=== PATIENT | female | born 1950 | race Caucasian/White ===

== ENCOUNTER 2016-06-01 02:33 | Inpatient (IN) | payer BC ==
[~2016-06-01] VITALS: Ht 160 cm; Wt 86.8 kg
[~2016-06-01 02:33] MED LIST: ADVAIR; ANTIVERT25 MG PO; ATIVAN2 MG PO; AZO95 MG PO; Advair 250/50 Diskus IH; Aspirin E.C. PO; Ativan PO; CARDIZEM LA240 MG PO; CEFTIN500 MG PO; Cardizem CD,Cartia X PO; Ceftin PO; Cipro PO; Colace PO; Combivent IH; Ecotrin PO; HYDROCHLOROTHIA25 MG PO; Habitrol,Nicoderm CQ TD; LEXAPRO20 MG; LEXAPRO20 MG PO; LOPRESSOR50 MG PO; LORAZEPAM2 MG PO; Lopressor PO; METOPROLOL SUCC50 MG PO; Milk Of Magnesia,MOM PO; NICOTINE PATCH1 EAC2 TD; OMEPRAZOLE40 M1 PO; PREDNISONE10 MG PO; PROAIR HFA8.5 GM IH; Percocet 5/325,Endoc PO; TYLENOL REGULA325 MG PO; Tylenol Regular Stre PO; Zithromax PO; predniSONE PO
[2016-06-01 03:13] LABS: HEMATOCRIT 43.1 % (36.0-46.0); MCH 30.6 PG (29.0-34.0); MCHC 33.9 G/DL (30.0-36.0); MCV 90.4 FL (83-99); MEAN PLAT.VOLUME 9.9 uM^3 (9.5-12.4); PLATELET COUNT 334 K/uL (156-360); RBC DIS.WIDTH-SD 45.6 % (39-53); RED BLOOD COUNT 4.77 M/uL (3.80-5.20); WHITE BLOOD COUNT 12.4 K/uL (4.1-10.2)
[2016-06-01 03:19] LABS: POTASSIUM ND MEQ/L (3.7-5.4)
[2016-06-01 03:26] LABS: CHLORIDE 105 mEq/L (99-109); SODIUM 137 mEq/L (136-147)
[2016-06-01 03:28] LABS: GLUCOSE 98 mg/dL (70-99)
[2016-06-01 03:29] LABS: ANION GAP 11 MEQ/L (2-14)
[2016-06-01 03:31] LABS: GFR ESTIMATE (CALCULATED) > 59 mL/min/
[2016-06-01 03:32] LABS: UREA NITROGEN (BUN) 9 mg/dL (9-23)
[2016-06-01 03:33] LABS: TROP-I INTERPRETATION NEGATIVE; TROPONIN-I < 0.01 ng/mL (0.0-0.30)
[2016-06-01 03:52] LABS: INFLUENZA A VIRAL ANTIGEN NEGATIVE; INFLUENZA B VIRAL ANTIGEN NEGATIVE
[2016-06-01 04:28] LABS: POTASSIUM 3.6 mEq/L (3.7-5.4)
[2016-06-01] MEDS ORDERED: ATIVAN2 MG PO (06:19)
[2016-06-01] MEDS ORDERED: ANTIVERT25 MG PO (06:20)
[2016-06-01] MEDS ORDERED: CARTIA XT240 MG PO (06:20)
[2016-06-01] MEDS ORDERED: OMEPRAZOLE40 M1 PO (06:20)
[2016-06-01 13:07] VITALS: BP 105/52
[2016-06-01 17:02] VITALS: BP 163/72
[2016-06-01 20:15] VITALS: BP 134/72
[2016-06-02 00:01] VITALS: BP 103/50
[2016-06-02 03:52] VITALS: BP 130/64
[2016-06-02 06:41] LABS: ANION GAP 10 MEQ/L (2-14); CHLORIDE 104 MEQ/L (99-109); GFR ESTIMATE (CALCULATED) > 59 mL/min/; GLUCOSE 150 mg/dL (70-99); SAMPLE HEMOLYSIS CHECK 0; SAMPLE ICTERIC CHECK 0; SAMPLE LIPEMIA CHECK 0; SODIUM 139 MEQ/L (136-147); UREA NITROGEN (BUN) 10 mg/dL (9-23)
[2016-06-02 07:08] LABS: EOSINOPHIL (%) 0 % (0-5); HEMATOCRIT 42.5 % (36.0-46.0); IMMATURE GRANULOCYTE (%) 0.6 % (0.0-0.7); IMMATURE GRANULOCYTE COUNT 0.1 K/uL; LYMPHOCYTE COUNT 0.7 K/uL (1.0-2.8); MCH 30.9 PG (29.0-34.0); MCHC 33.2 G/DL (30.0-36.0); MCV 93.2 FL (83-99); MEAN PLAT.VOLUME 9.9 uM^3 (9.5-12.4); MONOCYTE COUNT 0.1 K/uL (0-0.8); NEUTROPHIL (%) 93.2 % (45-76); NEUTROPHIL COUNT 12.7 K/uL (1.8-6.4); PLATELET COUNT 314 K/uL (156-360); RBC DIS.WIDTH-SD 47.4 % (39-53); RED BLOOD COUNT 4.56 M/uL (3.80-5.20); WHITE BLOOD COUNT 13.6 K/uL (4.1-10.2)
[2016-06-02 08:12] VITALS: BP 141/72
[2016-06-02] MEDS ORDERED: ADVAIR 500/501 DISK IH (11:07)
[2016-06-02 11:40] VITALS: BP 121/61
[2016-06-02] MEDS ORDERED: PREDNISONE10 MG PO (12:02)
[2016-06-02] MEDS ORDERED: NICOTINE PATCH1 EAC2 TD (12:02)
[2016-06-02] MEDS ORDERED: SPIRIVA RESPIMAT4 GM IH (12:02)
[2016-06-02] MEDS ORDERED: CEFTIN500 MG PO (12:02)
[2016-06-02] MEDS ORDERED: ZITHROMAX500 MG PO (12:02)
== END 2016-06-02 14:44 | disposition home or self-care (01) | DRG 192 ==
LOC: EME → EDBD 02:33 → EDOF 05:45 → 5WEST 07:22
PROVIDERS: Emergency Medicine; Internal Medicine
DX: J44.0 Chronic obstructive pulmonary disease with (acute) lower respiratory infection (principal); J20.9 Acute bronchitis, unspecified; J44.1 Chronic obstructive pulmonary disease with (acute) exacerbation; E87.6 Hypokalemia; I10 Essential (primary) hypertension; F41.9 Anxiety disorder, unspecified; F17.200 Nicotine dependence, unspecified, uncomplicated; K21.9 Gastro-esophageal reflux disease without esophagitis; Z86.000 Personal history of in-situ neoplasm of breast; E66.9 Obesity, unspecified; Z68.33 Body mass index [BMI] 33.0-33.9, adult
CPT/HCPCS: 71020; 80048; 83605; 84484; 84999; 85025; 85027; 87040; 87070; 87205; 87449; 87502; 93005; 94640; 94640 76; 94760; 94799; 99202; 99281; 99285; J0456; J0696; J1644; J1956; J2930; J7030; J7050

== ENCOUNTER 2016-07-22 05:37 | Day surgery (SDC) | payer BC, OTHER ==
[~2016-07-22] VITALS: Ht 160 cm; Wt 99.3 kg
[~2016-07-22 05:37] MED LIST changes: +ADVAIR 500/501 DISK IH; +ALPRAZOLAM0.5 MG PO; +CARTIA XT240 MG PO; +ELIQUIS5 MG PO; +PROVENTIL,2.5 MG/3 M IH; +SPIRIVA RESPIMAT4 GM IH; +ZITHROMAX500 MG PO
[2016-07-22 06:05] VITALS: BP 147/72
[2016-07-22 06:34] LABS: BASOPHIL COUNT 0.1 K/uL (0-0.1); EOSINOPHIL (%) 1.7 % (0-5); EOSINOPHIL COUNT 0.1 K/uL (0-0.3); HEMATOCRIT 44.5 % (36.0-46.0); IMMATURE GRANULOCYTE (%) 0.1 % (0.0-0.7); IMMATURE GRANULOCYTE COUNT 0.1 K/uL; LYMPHOCYTE COUNT 1.6 K/uL (1.0-2.8); MCH 30.1 PG (29.0-34.0); MEAN PLAT.VOLUME 9.8 uM^3 (9.5-12.4); MONOCYTE (%) 9.2 % (3-12); MONOCYTE COUNT 0.7 K/uL (0-0.8); NEUTROPHIL (%) 66.2 % (45-76); NEUTROPHIL COUNT 4.7 K/uL (1.8-6.4); PLATELET COUNT 272 K/uL (156-360); RBC DIS.WIDTH-CV 15.4 % (11.8-14.6); RBC DIS.WIDTH-SD 50.3 % (39-53); RED BLOOD COUNT 4.89 M/uL (3.80-5.20); WHITE BLOOD COUNT 7.1 K/uL (4.1-10.2)
[2016-07-22 06:43] LABS: CHLORIDE 109 mEq/L (99-109); PROTHROMBIN TIME 10.4 (9.2-11.2); SODIUM 144 mEq/L (136-147)
[2016-07-22 06:44] LABS: PTT 30.5 (25-32)
[2016-07-22 06:46] LABS: GLUCOSE 101 mg/dL (70-99)
[2016-07-22 06:47] LABS: ANION GAP 9 MEQ/L (2-14); TOTAL BILIRUBIN 0.2 mg/dL (0.0-1.0)
[2016-07-22 06:49] LABS: ALKALINE PHOSPHATASE 78 IU/L (3-129); GFR ESTIMATE (CALCULATED) > 59 mL/min/
[2016-07-22 06:50] LABS: UREA NITROGEN (BUN) 11 mg/dL (9-23)
[2016-07-22 07:20] LABS: METH RESISTANT S AUREUS PCR NEGATIVE (NEGATIVE); PROBE CHECK PASS; SPECIMEN PROCESSING CONTROL PASS
[2016-07-22] MEDS ORDERED: COLACE100 MG PO (10:52)
[2016-07-22] MEDS ORDERED: HYDROCODON-ACE1 EAC7 PO (10:52)
[2016-07-22 11:00] VITALS: BP 135/66
[2016-07-22 12:20] VITALS: BP 148/71
[2016-07-22 13:20] VITALS: BP 150/70
== END 2016-07-22 13:25 | disposition home or self-care (01) ==
LOC: SDC 05:37
PROVIDERS: Thoracic Surgery (Cardiothoracic Vascular Surgery)
PROC: 07B74ZX Excision of Thorax Lymphatic, Percutaneous Endoscopic Approach, Diagnostic (ICD-10-PCS; principal; 2016-07-22)
DX: R59.0 Localized enlarged lymph nodes (principal); C34.90 Malignant neoplasm of unspecified part of unspecified bronchus or lung; J44.9 Chronic obstructive pulmonary disease, unspecified; F17.200 Nicotine dependence, unspecified, uncomplicated; Z86.000 Personal history of in-situ neoplasm of breast; Z85.41 Personal history of malignant neoplasm of cervix uteri; Z98.890 Other specified postprocedural states; Z88.5 Allergy status to narcotic agent; Z88.6 Allergy status to analgesic agent; Z82.49 Family history of ischemic heart disease and other diseases of the circulatory system; Z83.3 Family history of diabetes mellitus; Z80.6 Family history of leukemia
CPT/HCPCS: 80053; 85025; 85610; 85730; 86850; 86900; 86901; 87641; 88305; J0330; J0690; J2405; J3010

== ENCOUNTER → 2016-08-08 | Outpatient (CLI) | payer BC, OTHER ==
[~2016-08-08] MED LIST changes: +COLACE100 MG PO; +HYDROCODON-ACE1 EAC7 PO
[2016-08-08 08:46] LABS: BASE EXCESS -0.9 mEq/L (-3 to +3); BICARBONATE 24.3 mEq/L (22-26); PCO2 41 mm Hg (35-45); PO2 76 mm Hg (80-100); pH 7.38 (7.35-7.45)
[2016-08-08 08:52] LABS: CARBOXY HGB 13.9 % (0-5); COMMENTS - BLOOD GASES AC+; DEVICE ROOM AIR; FI02 21 %; SITE LR; TOTAL RESP RATE 14 resp/min
== END | disposition home or self-care (01) ==
LOC: RES 08:25
PROVIDERS: Thoracic Surgery (Cardiothoracic Vascular Surgery)
DX: J44.9 Chronic obstructive pulmonary disease, unspecified (principal); C34.90 Malignant neoplasm of unspecified part of unspecified bronchus or lung
CPT/HCPCS: 36600; 82803; 94060; 94726; 94729

== ENCOUNTER 2016-08-14 09:21 | Inpatient (IN) | payer BC, OTHER ==
[~2016-08-14] VITALS: Ht 160 cm; Wt 99.8 kg
[2016-09-16] MEDS ORDERED: BREO ELLIPTA I1 EACH IH (12:13)
[2016-09-18 08:18] VITALS: BP 149/72
[2016-09-18 08:44] LABS: BASOPHIL COUNT 0.1 K/uL (0-0.1); EOSINOPHIL COUNT 0.2 K/uL (0-0.3); HEMATOCRIT 42.2 % (36.0-46.0); IMMATURE GRANULOCYTE (%) 0.5 % (0.0-0.7); INSTRUMENT ABS NEUTROPHIL CT 6.3 K/uL; LYMPHOCYTE COUNT 1.6 K/uL (1.0-2.8); MCH 29.4 PG (29.0-34.0); MCHC 32.7 G/DL (30.0-36.0); MCV 89.8 FL (83-99); MEAN PLAT.VOLUME 9.4 uM^3 (9.5-12.4); MONOCYTE (%) 5.5 % (3-12); MONOCYTE COUNT 0.5 K/uL (0-0.8); NEUTROPHIL (%) 73.1 % (45-76); NEUTROPHIL COUNT 6.3 K/uL (1.8-6.4); PLATELET COUNT 385 K/uL (156-360); RBC DIS.WIDTH-CV 13.7 % (11.8-14.6); RBC DIS.WIDTH-SD 45.4 % (39-53); WHITE BLOOD COUNT 8.7 K/uL (4.1-10.2)
[2016-09-18 09:08] LABS: CHLORIDE 107 mEq/L (99-109); POTASSIUM 4.2 mEq/L (3.7-5.4); SODIUM 142 mEq/L (136-147)
[2016-09-18 09:10] LABS: GLUCOSE 98 mg/dL (70-99)
[2016-09-18 09:12] LABS: ANION GAP 13 MEQ/L (2-14); TOTAL BILIRUBIN 0.4 mg/dL (0.0-1.0)
[2016-09-18 09:14] LABS: ALKALINE PHOSPHATASE 95 IU/L (3-129); GFR ESTIMATE (CALCULATED) > 59 mL/min/
[2016-09-18 09:15] LABS: UREA NITROGEN (BUN) 9 mg/dL (9-23)
[2016-09-18 13:25] VITALS: BP 129/72
[2016-09-18 14:25] VITALS: BP 171/77
[2016-09-18 15:17] VITALS: BP 145/70
== END 2016-09-18 15:17 | disposition home or self-care (01) | DRG 182 ==
LOC: SDC 09:21 → EDSTATUS 09:21 → 2SOUTH 09:22
PROVIDERS: Thoracic Surgery (Cardiothoracic Vascular Surgery)
DX: C34.11 Malignant neoplasm of upper lobe, right bronchus or lung (principal); K76.9 Liver disease, unspecified; R10.9 Unspecified abdominal pain; J44.9 Chronic obstructive pulmonary disease, unspecified; Z85.3 Personal history of malignant neoplasm of breast; Z85.41 Personal history of malignant neoplasm of cervix uteri; I10 Essential (primary) hypertension; F17.210 Nicotine dependence, cigarettes, uncomplicated; H91.91 Unspecified hearing loss, right ear; Z86.711 Personal history of pulmonary embolism; Z79.01 Long term (current) use of anticoagulants; R59.0 Localized enlarged lymph nodes
CPT/HCPCS: 80053; 85025; 85610; 86900; 86901; 86920; 88108; 88305; J0330; J0690; J1100; J2250; J2405; J3010